=== PATIENT | female | born 1930 | race Caucasian/White ===

== ENCOUNTER 2017-02-16 07:56 | Inpatient (IN) | payer OTHER ==
[~2017-02-16] VITALS: Ht 152.4 cm; Wt 61.2 kg
[2017-02-16] MEDS ORDERED: DEXTROSE 50% WATER 50ML SYRINGE IV ONE ×2 (09:45→09:47)
[2017-02-16 10:27] LABS: HEMATOCRIT. 30.6 % (36.0-48.0); HEMOGLOBIN. 10.6 g/dL (12.0-16.0); MEAN CORPUSCULAR HEMOGLOBIN 30.6 pg (28.0-32.0); MEAN CORPUSCULAR VOLUME 88.3 fL (81.0-99.0); MEAN PLATELET VOLUME 7.9 fl (7.4-10.4); PLATELET 166 x1000/uL (130-400); RED BLOOD CELL COUNT 3.47 mill/uL (4.2-5.4); RED CELL DISTRIBUTION WIDTH 12.6 % (11.6-14.6)
[2017-02-16 10:31] LABS: CHLORIDE 105 mEq/L (98-107)
[2017-02-16 10:32] LABS: PROTHROMBIN TIME 10.4 sec (9.4-11.6)
[2017-02-16 10:39] LABS: CARBON DIOXIDE 22 mEq/L (21-32)
[2017-02-16] MEDS ORDERED: DEXTROSE 50% WATER 50ML SYRINGE IV PRN (11:15)
[2017-02-16 11:23] LABS: PLATELET ESTIMATE NORMAL
[2017-02-16 13:33] LABS: CLARITY URINE CLEAR (CLEAR); COLOR URINE YELLOW (YELLOW); KETONES URINE NEGATIVE (NEGATIVE); LEUKOCYTE ESTERASE URINE NEGATIVE (NEGATIVE); NITRITE URINE NEGATIVE (NEGATIVE); OCCULT BLOOD URINE NEGATIVE (NEGATIVE); PROTEIN URINE 1+ (NEGATIVE); SPECIFIC GRAVITY URINE 1.015 (1.005-1.030); UROBILINOGEN URINE 0.2 E.U./dL (0.2-1.0)
[2017-02-16] MEDS ORDERED: CLONIDINE 0.2MG TABLET PO PRN (17:30)
[2017-02-16 22:00] VITALS: BP 185/65
[2017-02-16 23:00] VITALS: BP 185/65
[2017-02-16 23:36] VITALS: BP 175/60
[2017-02-16] MEDS: AMLODIPINE 10MG TABLET PO SCH (23:38)
[2017-02-16] MEDS: INSULIN LISPRO 100 UNITS/ML SUBCUT SCH (23:38)
[2017-02-16] MEDS: BLOOD SUGAR DIAGNOSTIC STRIP TEST SCH ×2 (23:38→23:58)
[2017-02-16] MEDS: LISINOPRIL 40MG TABLET PO SCH (23:38)
[2017-02-17 03:39] LABS: CREATINE KINASE MB FRACTION 2.7 ng/mL (0.5-3.6); TROPONIN I 0.17 ng/mL (0.00-0.04)
[2017-02-17 04:00] VITALS: BP 156/60
[2017-02-17] MEDS: BLOOD SUGAR DIAGNOSTIC STRIP TEST SCH ×4 (06:15→20:22)
[2017-02-17] MEDS: INSULIN LISPRO 100 UNITS/ML SUBCUT SCH ×4 (06:15→20:21)
[2017-02-17 08:00] VITALS: BP 151/61
[2017-02-17] MEDS: LISINOPRIL 40MG TABLET PO SCH (08:59)
[2017-02-17] MEDS: AMLODIPINE 10MG TABLET PO SCH (09:00)
[2017-02-17 12:00] VITALS: BP 150/59
[2017-02-17] MEDS ORDERED: CLONIDINE 0.2MG TABLET PO PRN (12:00)
[2017-02-17] MEDS ORDERED: CLONIDINE 0.1MG TABLET PO PRN (12:00)
[2017-02-17 13:13] LABS: TROPONIN I 0.16 ng/mL (0.00-0.04)
[2017-02-17 16:00] VITALS: BP 158/68
[2017-02-17 19:00] VITALS: BP_SYST 156; BP_SYST 158; BP_SYST 160; BP_DIAS 55; BP_DIAS 60
[2017-02-17 19:53] LABS: CREATINE KINASE MB FRACTION 2.4 ng/mL (0.5-3.6); TROPONIN I 0.15 ng/mL (0.00-0.04)
[2017-02-17 20:00] VITALS: BP 178/60
== END 2017-02-17 23:00 | disposition left against medical advice (07) | DRG 637 ==
LOC: ER 08:06 → 8WST 11:03 → ENRESERV 20:09
PROVIDERS: ADMIT Internal Medicine; ATTEND Internal Medicine
DX: E11.649 Type 2 diabetes mellitus with hypoglycemia without coma (principal); G93.41 Metabolic encephalopathy; N17.9 Acute kidney failure, unspecified; E44.1 Mild protein-calorie malnutrition; E11.22 Type 2 diabetes mellitus with diabetic chronic kidney disease; I13.10 Hypertensive heart and chronic kidney disease without heart failure, with stage 1 through stage 4 chronic kidney disease, or unspecified chronic kidney disease; N18.9 Chronic kidney disease, unspecified; J06.9 Acute upper respiratory infection, unspecified; Z53.21 Procedure and treatment not carried out due to patient leaving prior to being seen by health care provider; D64.9 Anemia, unspecified; T38.3X5A Adverse effect of insulin and oral hypoglycemic [antidiabetic] drugs, initial encounter; Y92.89 Other specified places as the place of occurrence of the external cause; Z68.26 Body mass index [BMI] 26.0-26.9, adult
CPT/HCPCS: 36415; 71045; 80048; 80053; 81001; 82550; 82553; 82962; 83036; 84484; 85025; 85610; 87804; 93005; 93306; 99285; J1815

== ENCOUNTER 2017-05-28 12:30 | Emergency (ER) | payer OTHER ==
[~2017-05-28] VITALS: Ht 160 cm; Wt 60.0 kg
[2017-05-28 14:10] LABS: BASOPHILS % 0.7 % (0.0-2.0); EOSINOPHILS % 0.4 % (0.0-5.0); HEMATOCRIT. 28.6 % (36.0-48.0); HEMOGLOBIN. 9.7 g/dL (12.0-16.0); LYMPHOCYTES % 14.5 % (20.0-50.0); MEAN CORPUSCULAR HEMOGLOBIN 29.3 pg (28.0-32.0); MEAN CORPUSCULAR VOLUME 86.6 fL (81.0-99.0); MEAN PLATELET VOLUME 6.9 fl (7.4-10.4); NEUTROPHILS % 79.4 % (40.0-76.0); PLATELET 257 x1000/uL (130-400); RED CELL DISTRIBUTION WIDTH 15.4 % (11.6-14.6)
[2017-05-28 14:12] LABS: CHLORIDE 110 mEq/L (98-107); INR 1.1; PROTHROMBIN TIME 11.4 sec (9.4-11.6)
[2017-05-28 17:15] LABS: CLARITY URINE CLEAR (CLEAR); COLOR URINE YELLOW (YELLOW); KETONES URINE 1+ (NEGATIVE); LEUKOCYTE ESTERASE URINE NEGATIVE (NEGATIVE); NITRITE URINE NEGATIVE (NEGATIVE); OCCULT BLOOD URINE NEGATIVE (NEGATIVE); PH URINE 5.5 (4.5-8.0); PROTEIN URINE 4+ (NEGATIVE); SPECIFIC GRAVITY URINE 1.019 (1.005-1.030); UROBILINOGEN URINE 0.2 E.U./dL (0.2-1.0)
[2017-05-28] MEDS ORDERED: MORPHINE SULFATE 4 MG/ML CPJ (NOT FOR IM USE) IV STA (17:26)
[2017-05-28] MEDS ORDERED: ONDANSETRON HCL 4MG/2ML VIAL IV STA (17:26)
[2017-05-28 19:42] VITALS: BP 155/63
== END 2017-05-28 20:26 | disposition short-term general hospital (02) ==
LOC: ER 12:39 → CANBEDREQ 21:46
DX: S22.43XA Multiple fractures of ribs, bilateral, initial encounter for closed fracture (principal); S42.001A Fracture of unspecified part of right clavicle, initial encounter for closed fracture; S42.002A Fracture of unspecified part of left clavicle, initial encounter for closed fracture; M48.54XA Collapsed vertebra, not elsewhere classified, thoracic region, initial encounter for fracture; M48.56XA Collapsed vertebra, not elsewhere classified, lumbar region, initial encounter for fracture; R94.31 Abnormal electrocardiogram [ECG] [EKG]; R79.89 Other specified abnormal findings of blood chemistry; R74.8 Abnormal levels of other serum enzymes; M54.5 Low back pain; I50.9 Heart failure, unspecified; I11.0 Hypertensive heart disease with heart failure; E78.00 Pure hypercholesterolemia, unspecified; E11.9 Type 2 diabetes mellitus without complications; Z90.49 Acquired absence of other specified parts of digestive tract; W18.39XA Other fall on same level, initial encounter; Y93.89 Activity, other specified; Y92.89 Other specified places as the place of occurrence of the external cause; Y99.8 Other external cause status
CPT/HCPCS: 36415; 70450; 71045; 71250; 72131; 74176; 80053; 81003; 82962; 83880; 84484; 85025; 85610; 93005; 96374; 96375; 99285; J2270; J2405

== ENCOUNTER 2018-09-28 08:08 | Emergency (ER) | payer OTHER ==
[~2018-09-28] VITALS: Ht 152.4 cm; Wt 54.0 kg
[2018-09-28] MEDS ORDERED: IPRATROPIUM BROMIDE (0.02%) 0.5MG/2.5ML NEB HHN STA (08:20)
[2018-09-28] MEDS ORDERED: ALBUTEROL (0.083%) 2.5MG/3ML NEB HHN STA (08:20)
[2018-09-28] MEDS ORDERED: ALBUTEROL (0.083%) 2.5MG/3ML NEB ONE (08:34)
[2018-09-28] MEDS ORDERED: IPRATROPIUM BROMIDE (0.02%) 0.5MG/2.5ML NEB ONE (08:34)
[2018-09-28 09:00] LABS: BASOPHILS % 0.8 % (0.0-2.0); EOSINOPHILS % 1.6 % (0.0-5.0); HEMATOCRIT. 28.6 % (36.0-48.0); HEMOGLOBIN. 9.9 g/dL (12.0-16.0); LYMPHOCYTES % 9.6 % (20.0-50.0); MEAN CORPUSCULAR HEMOGLOBIN 31.7 pg (28.0-32.0); MEAN CORPUSCULAR VOLUME 92.1 fL (81.0-99.0); MEAN PLATELET VOLUME 7.5 fl (7.4-10.4); MONOCYTES % 5.2 % (2.0-8.0); NEUTROPHILS % 82.8 % (40.0-76.0); PLATELET 169 x1000/uL (130-400); RED BLOOD CELL COUNT 3.11 mill/uL (4.2-5.4); RED CELL DISTRIBUTION WIDTH 13.5 % (11.6-14.6)
[2018-09-28 09:04] LABS: CHLORIDE 104 mEq/L (98-107)
[2018-09-28 09:05] LABS: PROTHROMBIN TIME 10.6 sec (9.6-11.0)
[2018-09-28] MEDS ORDERED: FUROSEMIDE 20MG/2ML VIAL IVP ONE (09:30)
[2018-09-28 11:38] VITALS: BP 117/46
== END 2018-09-28 11:39 | disposition short-term general hospital (02) ==
LOC: ER 08:27 → CANBEDREQ 16:04
DX: I11.0 Hypertensive heart disease with heart failure (principal); I50.41 Acute combined systolic (congestive) and diastolic (congestive) heart failure; D64.9 Anemia, unspecified; E11.9 Type 2 diabetes mellitus without complications; E78.00 Pure hypercholesterolemia, unspecified; E78.5 Hyperlipidemia, unspecified; Z87.19 Personal history of other diseases of the digestive system; Z90.49 Acquired absence of other specified parts of digestive tract
CPT/HCPCS: 36415; 71045; 80053; 83605; 83880; 84145; 84484; 85025; 85610; 87040; 93005; 94640; 96374; 99291; J1940; J7611

== ENCOUNTER 2021-04-02 13:20 | Emergency (ER) | payer OTHER ==
[~2021-04-02] VITALS: Ht 162.6 cm; Wt 45.0 kg
[2021-04-02] MEDS ORDERED: CEPH500C2 MT (18:18)
[2021-04-02 19:54] VITALS: BP 141/58
[2021-04-02] MEDS ORDERED: CEPHALEXIN 250MG CAPSULE PO ONE (20:15)
== END 2021-04-02 21:09 | disposition home or self-care (01) ==
LOC: ER 13:31
DX: L03.115 Cellulitis of right lower limb (principal); E78.00 Pure hypercholesterolemia, unspecified; I10 Essential (primary) hypertension; E11.9 Type 2 diabetes mellitus without complications; Z90.49 Acquired absence of other specified parts of digestive tract
CPT/HCPCS: 93971; 99284